=== PATIENT | female | born 1935 | race Caucasian/White ===

== ENCOUNTER → 2017-07-27 15:41 | Outpatient (CLI) | payer MEDICARE, OTHER, SELFPAY ==
--- NOTE | 2017-07-27 15:47 | CT_ITS ---
STUDY: CT LUMBAR SPINE WITHOUT CONTRAST REASON FOR EXAM: Female, 81 years old. Back pain. Degenerative disc disease. RADIATION DOSAGE (If Supplied By Facility): CTDIvol = ( 16.22 ) mGy, DLP = ( 398.25 ) mGycm TECHNIQUE: The patient was scanned in a multi detector CT scanner. High resolution transaxial imaging was performed. Images were obtained through the lumbar spine. Sagittal and coronal images were reconstructed. Individualized dose optimization techniques were used for this CT. COMPARISON: None FINDINGS: There is no evidence of fracture or dislocation in the lumbar spine. There are mild degenerative changes in the lumbar spine with facet hypertrophy, mild disc space narrowing and small osteophytes. There is vertebroplasty cement noted in the T12 vertebral body which is not fully visualized on this exam. There are atherosclerotic calcifications noted in the aorta. CT/Spine Lumbar without Contrast IMPRESSION: No fracture or dislocation in the lumbar spine. Mild degenerative change. Atherosclerosis. Electronically Signed: Nilton Graham, at 17:01 EDT Tel , Service support ,
== END ==
PROVIDERS: Family Provider Student in an Organized Health Care Education/Training Program; PCP Student in an Organized Health Care Education/Training Program; Visit Provider Student in an Organized Health Care Education/Training Program
DX: M51.36 Other intervertebral disc degeneration, lumbar region (principal)
CPT/HCPCS: 72131

== ENCOUNTER → 2017-09-06 21:27 | Outpatient (CLI) | payer MEDICARE, OTHER, SELFPAY ==
--- NOTE | 2017-09-06 | FLU_PTH ---
PATIENT: L[facility] LOC: [facility] U#:[id number] AGE/SX: 89/F ROOM: RE09/06/[address]: STEPAN Selby : 1935 BED: DIS: SPEC #: [id number] RECD: 09/06/17 16:00 STATUS: RONNA AMAIRANI #: [id number] BRIGETTE: 09/06/17 00:[address]: Amy Mckee NP DEPT: CYTOLOGY RECD BY: Sana Hameed Tissues: Urine Procedures: Pap Stain (control) Special Stain Group II Cytospin Fluid HEADER OPERATION: Not noted PRE-OP DIAGNOSIS: Z00.00 TISSUE SUBMITTED: Urine for cytology DIAGNOSIS CYTOLOGY Urine for cytology (cytospin): Negative for malignant cells. Acute inflammation. SJ:bertram 09/08/17 CYTOLOGY STUDY Slides are reviewed. The specimen predominantly consists of benign squamous cells and neutrophils. CYTOLOGY GROSS Received is 15 ml of cloudy yellow fluid labeled with the patient's name and and designated per the requisition as urine. Submitted for cytology preparation. / CC:kay 09/07/17 TC:2 CPT: 71474
[2017-09-06 21:29] LABS: Cytology, Body Fluid / CSF SEE PATHOLOGY REPORT
== END ==
PROVIDERS: Visit Provider Nurse Practitioner Adult Health
DX: R31.9 Hematuria, unspecified (principal)
CPT/HCPCS: 87086; 87088; 88108; 88305; 88313

== ENCOUNTER → 2017-11-08 14:41 | Outpatient (CLI) | payer MEDICARE, OTHER, SELFPAY ==
[2017-11-08 17:43] LABS: Absolute Lymphocyte Count 2.63 X10^3/ul (0.83-4.51); Absolute Neutrophil Count 4.5 X10^3/uL (2.0-7.7); Basophil# 0.02 X10^3/uL; Basophil% 0.3 % (0-1); Eosinophil# 0.03 X10^3/uL; Eosinophils% 0.4 % (0-5); Hematocrit 40.1 % (37-47); Hemoglobin 12.8 g/dl (12.0-15.0); Lymphocyte # 2.63 X10^3/ul (4.0); Lymphocyte % 34.2 % (19-41); Mean Corp Hgb Conc 31.9 g/gl (32-36); Mean Corpuscular Volume 90.7 fL (81-99); Mean Platelet Vol. 10.8 fl (6.2-12.0); Monocyte% 6.5 % (0-10); Neutrophil # 4.49 X10^3/uL (2.7-7.7); Neutrophil % 58.5 % (47-70); Platelet Count 162 K/mm3 (150-450); RBC Distribution Width CV 13.8 % (11.6-14.6); RBC Distribution Width SD 45.5 fl (35.1-43.9); Red Blood Count 4.42 M/mm3 (4.2-5.4); White Blood Count 7.7 K/mm3 (4.4-11.0)
[2017-11-08 17:46] LABS: POSITIVE COUNT NO; POSITIVE DIFFERENTIAL NO; POSITIVE MORPHOLOGY NO
[2017-11-08 18:01] LABS: Erythrocyte Sedimentation Rate 5 mm/hr (0-30)
[2017-11-08 18:18] LABS: ALB/GLOB Ratio 1.1 RATIO (0.9-2.4); AST(SGOT) 25 U/L (15-37); Alanine Aminotransfer ALT/SGPT 15 U/L (13-56); Albumin, Serum 4.1 g/dL (3.2-5.0); Alkaline Phosphatase 80 U/L (45-117); Anion Gap 9 (5-15); BUN 23 mg/dL (7-18); CRP < 2.90 mg/L (0.0-3.0); Calcium,Total 9.6 mg/dL (8.5-10.1); Chloride 103 mmol/L (98-107); Creatinine, Serum 1.21 mg/dL (0.55-1.02); EST Glomerular Filtration Rate 45 mL/min (>60); Est Glom Filt Rate - Afr Amer 55 mL/min (>60); Globulin 3.7 g/dL (2.2-4.2); Glucose 93 mg/dL (74-106); Potassium 4.4 mmol/L (3.5-5.1); Protein, Total 7.8 g/dL (6.4-8.2); Rheumatoid Factor < 10.0 IU/mL (<15); Sodium Level 141 mmol/L (136-145)
[2017-11-11 13:01] LABS: CCP IgG Antibodies 11 units (0-19)
[2017-11-11 13:03] LABS: ANTINUCLEAR ANTIBODIES DIRECT Negative (Negative)
== END ==
PROVIDERS: Family Provider Student in an Organized Health Care Education/Training Program; PCP Student in an Organized Health Care Education/Training Program; Referring Provider Internal Medicine Rheumatology; Visit Provider Internal Medicine Rheumatology
DX: R70.0 Elevated erythrocyte sedimentation rate (principal); M51.37 Other intervertebral disc degeneration, lumbosacral region; M47.894 Other spondylosis, thoracic region; M47.897 Other spondylosis, lumbosacral region
CPT/HCPCS: 36415; 80053; 85025; 85652; 86038; 86140; 86200; 86431

== ENCOUNTER 2018-09-01 15:55 | Emergency (ER) | payer MEDICARE, OTHER, SELFPAY ==
[2018-09-01 15:57] VITALS: BP 123/56; PULSE 59; RESP 15; O2SAT 97
[2018-09-01 16:03] VITALS: BP 143/65; PULSE 59; RESP 20; TEMP 36.8; O2SAT 96; BMI 28.0
[2018-09-01 16:12] VITALS: BMI 28.0
--- NOTE | 2018-09-01 16:23 | EKG12_ITS ---
Test Reason : NEURO Blood Pressure : / mmHG Vent. Rate : 059 BPM Atrial Rate : 059 BPM P-R Int : 160 ms QRS Dur : 084 ms QT Int : 430 ms P-R-T Axes : 064 008 055 degrees QTc Int : 425 ms Sinus bradycardia Otherwise normal ECG Confirmed by GILMER GRAY, BERTHA ([id number]), publishing editor RUKHSANA AJ ([id number]) on 09/04/2018 1:05:01 PM Referred By: RELL Confirmed By:BERTHA SCHERER MD
[2018-09-01 16:26] LABS: Bedside Glucose 104 mg/dL (70-110)
--- NOTE | 2018-09-01 16:33 | ED.VIS.GEN ---
History of Present Illness Chief Complaint: Neuro S/Sx Detail of Chief Complaint: Patient blurted out about spouse's mother Informant: Patient, Family Limited by: - - Patient states she does not know why she was brought to the emergency room by her Onset: Today Context: Sudden Onset Timing: Intermittent - Duration a couple of minutes Quality: Spoke about spouse's mother Location: [facility] Current Severity: - - Presently no symptoms Maximum Severity: - - Per spouse stronger than normal Worsened by: Nothing Relieved by: Nothing Associated Symptoms: Nothing Narrative: Patient is an elderly woman with history of Parkinson's disease who was at restaurant with and reported out spouses mother name and began talking about her. According to this is happened before. He states this is stronger. When asked what he meant his response was stronger. Duration possibly longer than prior symptoms. Patient presently has no symptoms. Review of systems is normal other than tremor secondary to Parkinson's. is having difficulty recalling things. He states he has problems with memory. Prior similar symptoms: Yes Recent Illness/Hospitalization: No - Past Medical History (1) History of Parkinson's disease Status: Acute (2) History of hypertension Status: Acute Past Medical History - Allergies and Home Meds Allergies/Adverse Reactions: Allergies alendronate sodium [From Fosamax] Allergy (Verified 04/17/16 10:43) Other JAW PAIN Primary Care Physician: Scooby Lozano DO [Primary Care Provider] - Prior records reviewed: Yes Surgical History: noncontributory Lives: Spouse/ Significant Other Smoking Status: Never smoker Alcohol: None Review of Systems ROS: Unable to Obtain - Patient states that she is not sure why she is here. is having difficulty elaborating/expressing what occurred. He denied slurred [place]. He denied problems with fluency of her words. General: Denies: Chills, Fever, Sweats Eyes: Denies: Visual changes - bilaterally, Blurred Vision - bilaterally, Diplopia ENT: Denies: Rhinorrhea, Sore throat Cardiovascular: Denies: Chest pain, Palpitations, Heart racing Respiratory: Denies: Dyspnea, Cough, Dyspnea on exertion Gastrointestinal: Denies: Abdominal pain, Nausea, Vomiting, Diarrhea, Melena, Hematochezia Genitourinary: Denies: Dysuria, Hematuria, Frequency Musculoskeletal: Denies: Myalgias, Arthralgias, Neck pain, Back pain, Swelling, Extremity Pain Skin: Denies: Rash, Wounds Neurological: Denies: Headache, Weakness, Parasthesia, Numbness Hematologic: Denies: Easy bruising, Easy bleeding Physical Exam Vital Signs/Narrative: Vital Signs Temp Pulse Resp BP Pulse Ox 09/01/18 16:03 98.2 F 59 L 20 H 143/65 H 96 09/01/18 15:57 59 L 15 123/56 H 97 Inital Vital Signs reviewed: Yes General: Well nourished, Well developed, No Acute Distress Head: Normocephalic, Atraumatic Eyes: Perrl, EOMI ENT: Moist mucous membranes, No rhinorrhea Neck: Supple, Nontender Cardiovascular: Regular rate, Regular rhythm, No murmurs Respiratory: No distress, CTA bilaterally, Chest nontender Abdomen: Soft, Nontender, Nondistended, Normal bowel sounds Back: Nontender, Normal Inspection Extremities: Nontender, No edema Skin: Normal color, No rash Neurological: Alert, Oriented x3, Cranial nerves II-XII grossly intact, Normal Strength, Normal Sensation, Normal DTR - There is no clonus or Babinski sign noted bilaterally, - - She responded that her age is 83. She states she will be 83 in October which is accurate.. Negative for: Confused, Disoriented, Inattentive Psychological: Normal affect, Normal Mood Diagnostic/Tx/Re-eval Impressions Brain CT 09/01/18 17:05 IMPRESSION: No acute intracranial abnormality. Stable anterior falcine meningioma. Electronically Signed: Celio Giana, at 17:46 EDT Tel , Service support , 09/01/18 17:05 CT Head [Brain/Head without Contrast] [CT] Stat Laboratory Results 09/01/18 09/01/18 09/01/18 16:05 16:05 16:17 WBC 8.0 RBC 4.01 L Hgb 12.7 Hct 37.7 MCV 94.0 MCH 31.7 MCHC 33.7 RDW Std Deviation 45.0 H RDW Coeff of Santana 13.2 Plt Count 186 MPV 10.0 Immature Gran % (Auto) 0.500 Neut % (Auto) 54.8 Lymph % (Auto) 37.0 Bracken % (Auto) 6.5 Eos % (Auto) 0.8 Baso % (Auto) 0.4 Absolute Neuts (auto) 4.4 Absolute Lymphs (auto) 2.96 Absolute Nucleated RBC 0.00 Nucleated RBC % 0 Sodium 136 Potassium 4.2 Chloride 103 Carbon Dioxide 27.0 Anion Gap 6 BUN 28 H Creatinine 1.66 H Estim Creat Clear Calc 21.99 Est GFR (MDRD) Af Amer 38 L Est GFR (MDRD) Non-Af 31 L BUN/Creatinine Ratio 16.9 Glucose 111 H Calcium 9.1 Urine Color Urine Clarity Urine pH Ur Specific [place] Urine Protein Urine Glucose (UA) Urine Ketones Urine Occult Blood Urine Nitrite Urine Bilirubin Urine Urobilinogen Ur Leukocyte Esterase Urine RBC Urine WBC Ur Squamous Epith Cells Calcium Oxalate Crystal Amorphous Sediment Urine Bacteria Urine Mucus POC Glucose 104 09/01/18 16:35 WBC RBC Hgb Hct MCV MCH MCHC RDW Std Deviation RDW Coeff of Santana Plt Count MPV Immature Gran % (Auto) Neut % (Auto) Lymph % (Auto) [place]acken % (Auto) Eos % (Auto) Baso % (Auto) Absolute Neuts (auto) Absolute Lymphs (auto) Absolute Nucleated RBC Nucleated RBC % Sodium Potassium Chloride Carbon Dioxide Anion Gap BUN Creatinine Estim Creat Clear Calc Est GFR (MDRD) Af Amer Est GFR (MDRD) Non-Af BUN/Creatinine Ratio Glucose Calcium Urine Color Yellow Urine Clarity Clear Urine pH 6.5 Ur Specific [place] 1.020 Urine Protein Negative Urine Glucose (UA) Normal Urine Ketones 5 H Urine Occult Blood Negative Urine Nitrite Negative Urine Bilirubin Negative Urine Urobilinogen Normal Ur Leukocyte Esterase 25 H Urine RBC 0 SEEN Urine WBC 5-10 SEEN Ur Squamous Epith Cells 0-5 SEEN Calcium Oxalate Crystal RARE Amorphous Sediment 1+ Urine Bacteria 2+ Urine Mucus 0 SEEN POC Glucose - Rhythm Strip Rhythm Strip: Sinus Rhythm Rate: 62 Ectopy: None - EKG Initial EKG Interpretation: Sinus Rhythm - Ventricular rate is 59. CA interval is 160 ms. QS duration 84 ms. QT interval is normal. EKG reveals no acute ischemic changes. Prior: Unchanged - Medical Decision Making Since this is not a new occurrence and symptoms are nonfocal will obtain CAT scan to assess for intracranial process that may explain her confusion and memory issues that have been going on. Will obtain blood work to assess for metabolic and infectious etiology as well as UA. CBC is unremarkable. Basic metabolic panel is unremarkable. UA reveals blood and leukoesterase on macro. Nitrites was negative. Micro reveals 5-10 WBCs with 2+ bacteria. Patient received 1 g of Rocephin IV piggyback. CAT scan results are pending. says that she rolled her fingers and apparently fell asleep in the car and that was his major concern. Her also recalls now that she completed a course of antibiotics for UTI. He does not recall what antibiotic she was on. ED Disposition - Plan for ED Patient: Disposition: Home or Assisted Living Diagnosis: Change in mental status, Complicated urinary tract infection Prescriptions: Smz/Tmp Ds [Bactrim Ds] 1 tab PO BID #14 tab Prescription Printed Referrals: Scooby Lozano DO [Primary Care Provider] - 3-5 Days
[2018-09-01 16:40] LABS: Absolute Lymphocyte Count 2.96 X10^3/uL (0.83-4.51); Absolute Neutrophil Count 4.4 X10^3/uL (2.0-7.7); Basophil# 0.03 X10^3/uL; Basophil% 0.4 % (0-1); Eosinophil# 0.06 X10^3/uL; Eosinophils% 0.8 % (0-5); Hematocrit 37.7 % (37-47); Hemoglobin 12.7 g/dL (12.0-15.0); Lymphocyte # 2.96 X10^3/ul (4.0); Mean Corp Hgb Conc 33.7 g/dL (32-36); Mean Corpuscular Hgb 31.7 pg (27.0-32.0); Monocyte# 0.52 X10^3/uL; Monocyte% 6.5 % (0-10); NRBC Flagged by Analyzer 0 % (0-5); Neutrophil # 4.38 X10^3/uL (2.7-7.7); Neutrophil % 54.8 % (47-70); Platelet Count 186 K/mm3 (150-450); RBC Distribution Width CV 13.2 % (11.6-14.6); Red Blood Count 4.01 M/mm3 (4.2-5.4)
[2018-09-01 16:42] LABS: Mucous, Urine 0 SEEN /hpf (<or=2+); Red Blood Cells-Urine 0 SEEN /hpf (0-5)
[2018-09-01 16:51] LABS: Anion Gap 6 (5-15); BUN 28 mg/dL (7-18); BUN/Creat Ratio 16.9 RATIO (10-20); Calcium,Total 9.1 mg/dL (8.5-10.1); Chloride 103 mmol/L (98-107); Creatinine, Serum 1.66 mg/dL (0.55-1.02); EST Glomerular Filtration Rate 31 mL/min (>60); Est Glom Filt Rate - Afr Amer 38 mL/min (>60); Estimated Creatinine Clearance 21.99 ml/min; Glucose 111 mg/dL (74-106); Potassium 4.2 mmol/L (3.5-5.1); Sodium Level 136 mmol/L (136-145)
[2018-09-01 16:55] LABS: Color, Urine Yellow (Yellow); Glucose, Dipstick Normal (Normal); Ketone-Dipstick 5 mg/dl (Negative); Leukocyte Esterase-Dipstick 25 /ul (Negative); Nitrite-Dipstick Negative (Negative); Occult Blood-Urine Negative /ul (Negative); Protein-Dipstick Negative (Negative); Urine Bilirubin Dipstick Negative (Negative); Urine Clarity Clear (Clear); Urine Urobilinogen Normal (Normal); Urine pH 6.5 (5.0 - 8.0)
[2018-09-01 16:57] VITALS: BP 135/57; PULSE 60; RESP 25; O2SAT 94
[2018-09-01 17:00] VITALS: BP 130/59; PULSE 60; RESP 14; RESP 15; O2SAT 98; O2SAT 99
--- NOTE | 2018-09-01 17:05 | CT_ITS ---
STUDY: CT BRAIN WITHOUT CONTRAST REASON FOR EXAM: Female, 82 years old. Altered mental status RADIATION DOSAGE (If Supplied By Facility): DLP = ( 796.11 ) mGycm TECHNIQUE: Transaxial CT imaging of the brain was performed without administration of intravenous contrast material. Individualized dose optimization techniques were used for this CT. COMPARISON: CT brain October 20, 2016 FINDINGS: Again seen is a hyperdense mass along the anterior falx measuring 1.5 x 1.3 cm. There is no acute bleed or infarct. There are normal white matter tracts. The ventricles are normal in configuration. There is no hydrocephalus. The visualized paranasal sinuses are clear. The mastoid air cells are well aerated. There is no skull fracture. CT/Brain/Head without Contrast IMPRESSION: No acute intracranial abnormality. Stable anterior falcine meningioma. Electronically Signed: Celio Faria, at 17:46 EDT Tel , Service support ,
[2018-09-01 17:24] LABS: Bacteria 2+ /hpf (None Seen); Calcium Oxalate Crystals Ur RARE /hpf (<or=2+); Squamous Epithelial Cells - UA 0-5 SEEN /hpf (5-10); White Blood Cells 5-10 SEEN /hpf (0-5)
[2018-09-01 17:25] LABS: Amorphous Sediment 1+
--- NOTE | 2018-09-01 17:39 | ED.RN ---
PER PT JUST D/C FROM ANTIBIOTICS FOR UTI. PT TOOK [facility] FROM HOME AFTER COMPLETING SWALLOW EVALUATION. DR. MANSFIELD INFORMED.
[2018-09-01] MEDS: Ceftriaxone 1 GM/50 ML BAG IV (17:49)
[2018-09-01 17:50] VITALS: BP 146/64; PULSE 65; RESP 19; TEMP 36.8; O2SAT 95
[2018-09-01 18:00] VITALS: BP 144/66; PULSE 66; RESP 24; O2SAT 95
--- NOTE | 2018-09-01 18:14 | ED.DCSUM_ITS ---
- ER Visit Summary Date of Service: 09/01/18 Chief Complaint: [] History of Present Illness: The patient is a 82 F [] Physical Examination: [] Test Results: [] Emergency Department Course and Treatment: [] Treatment Plan: [] Disposition: [] Impression: [] This note was generated with [employer] dictation software. It may contain incorrect words, spelling, and punctuation that were not noted in review of the chart prior to signing ED Disposition - Plan for ED Patient: Disposition: Home or Assisted Living Diagnosis: Change in mental status, Complicated urinary tract infection Instructions: Bladder Infection, Female (Adult), Confusion Prescriptions: Smz/Tmp Ds [Bactrim Ds] 1 tab PO BID #14 tab Prescription Printed Referrals: Scooby Lozano DO [Primary Care Provider] - 3-5 Days
== END 2018-09-01 18:42 | disposition home or self-care (01) ==
PROVIDERS: Emergency Provider Emergency Medicine; Family Provider Student in an Organized Health Care Education/Training Program; PCP Student in an Organized Health Care Education/Training Program
DX: R41.82 Altered mental status, unspecified (principal); N39.0 Urinary tract infection, site not specified; G20 Parkinson's disease; I10 Essential (primary) hypertension; Z79.899 Other long term (current) drug therapy
CPT/HCPCS: 70450; 80048; 81001; 82962; 85025; 87086; 93005; 96365; 99285; J7050; P9612; A4216